=== PATIENT | female | born 1965 | race Caucasian/White ===

== ENCOUNTER 2017-12-20 15:44 | Emergency (ER) | payer MEDICAID, SELFPAY ==
[2017-12-20 15:46] VITALS: BP 159/85; PULSE 84; RESP 16; TEMP 36.9; O2SAT 99; BMI 30.9
--- NOTE | 2017-12-20 16:19 | CT_ITS ---
STUDY: CT ABDOMEN AND PELVIS WITH CONTRAST REASON FOR EXAM: Female, 52 years old. Left lower quadrant pain RADIATION DOSAGE (If Supplied By Facility): CTDIvol = ( 14.64 ) mGy, DLP = ( 957.57 ) mGycm TECHNIQUE: Transaxial images were obtained from the lower chest to the upper thighs with oral contrast. 100 ml of Isovue 370 contrast was administered. Sagittal and coronal images were reconstructed. Individualized dose optimization techniques were used for this CT. COMPARISON: None. FINDINGS: There is minimal dependent atelectasis in both lung bases. There are a few nodular opacities in the periphery of both lung bases measuring less than 5 mm in size. There is no pleural effusion. The heart is normal in size. The liver is unremarkable. The gallbladder and biliary system are unremarkable. The spleen is unremarkable. The pancreas is unremarkable. The adrenal glands are unremarkable. The right kidney is unremarkable. There is no dilatation of the collecting system in the right kidney. The left kidney is unremarkable. There is no dilatation of the collecting system in the left kidney. The stomach is unremarkable. The small bowel is unremarkable. There are diverticula in the distal colon without adjacent stranding. There is mild wall thickening in the ascending colon. There is non-visualization of the appendix. There are minimal vascular calcifications. The inferior vena cava is unremarkable. The retroperitoneum is unremarkable. There is no free fluid in the abdomen. The urinary bladder is decompressed. The uterus is normal in appearance. There are no abnormal masses in the adnexal regions. There are small phleboliths scattered in the lower pelvis. The soft tissues of the abdominal wall are unremarkable. There are mild degenerative changes in the visualized spine. There are marked degenerative disc changes at L5-S1. CT/Abdomen/Pelvis WITH Contrast IMPRESSION: There is diverticulosis of the distal colon. There is mild wall thickening in the proximal colon, and a focal colitis cannot be excluded. There is no bowel obstruction, ascites, or free air. There are a few nodular opacities in the lung bases which measure less than 5 mm in size and cannot be further characterized. A nonemergent CT of the chest can be considered to evaluate the remainder of the lungs. Electronically Signed: Frdea Luz MD at 18:49 EDT Tel Direct: [phone], Service support ,
--- NOTE | 2017-12-20 16:19 | EKG12_ITS ---
Test Reason : ABD PAIN Blood Pressure : / mmHG Vent. Rate : 059 BPM Atrial Rate : 059 BPM P-R Int : 192 ms QRS Dur : 078 ms QT Int : 410 ms P-R-T Axes : 046 033 042 degrees QTc Int : 405 ms Sinus bradycardia Otherwise normal ECG Confirmed by HARSHAD NGUYEN, DEANNA ([id number]), editor house organ JUANITA SADLER ([id number]) on 12/24/2017 1:45:41 PM Referred By: ROSANGELA Confirmed By:DEANNA PATRICIA MD
[2017-12-20 17:24] LABS: Absolute Lymphocyte Count 1.77 X10^3/ul (0.83-4.51); Absolute Neutrophil Count 2.7 X10^3/uL (2.0-7.7); Basophil# 0.02 X10^3/uL; Basophil% 0.4 % (0-1); Eosinophil# 0.26 X10^3/uL; Eosinophils% 5.1 % (0-5); Lymphocyte # 1.77 X10^3/ul (4.0); Lymphocyte % 34.8 % (19-41); Mean Corp Hgb Conc 35.9 g/gl (32-36); Mean Corpuscular Hgb 32.2 pg (27.0-32.0); Mean Corpuscular Volume 89.7 fL (81-99); Mean Platelet Vol. 9.2 fl (6.2-12.0); Monocyte# 0.32 X10^3/uL; Monocyte% 6.3 % (0-10); Neutrophil # 2.72 X10^3/uL (2.7-7.7); Neutrophil % 53.4 % (47-70); Platelet Count 205 K/mm3 (150-450); RBC Distribution Width CV 12.8 % (11.6-14.6); RBC Distribution Width SD 41.5 fl (35.1-43.9); Red Blood Count 4.35 M/mm3 (4.2-5.4); White Blood Count 5.1 K/mm3 (4.4-11.0)
[2017-12-20 17:27] LABS: POSITIVE COUNT NO; POSITIVE DIFFERENTIAL NO; POSITIVE MORPHOLOGY NO
[2017-12-20] MEDS: 0.9% Normal Saline 1,000 ML 1000 ML IV (17:37)
[2017-12-20] MEDS: Ondansetron 4 MG/2 ML Vial IV (17:37)
[2017-12-20] MEDS: Dicyclomine 10 MG Capsule 20 MG PO (17:37)
[2017-12-20 17:42] LABS: ALB/GLOB Ratio 1.2 RATIO (0.9-2.4); AST(SGOT) 18 U/L (15-37); Alanine Aminotransfer ALT/SGPT 26 U/L (13-56); Alkaline Phosphatase 50 U/L (45-117); Anion Gap 9 (5-15); BUN 6 mg/dL (7-18); BUN/Creat Ratio 7.2 RATIO (10-20); Calcium,Total 9.2 mg/dL (8.5-10.1); Chloride 97 mmol/L (98-107); Creatinine, Serum 0.84 mg/dL (0.55-1.02); EST Glomerular Filtration Rate 76 mL/min (>60); Est Glom Filt Rate - Afr Amer 92 mL/min (>60); Globulin 3.4 g/dL (2.2-4.2); Glucose 98 mg/dL (74-106); Lipase 106 U/L (73-393); Protein, Total 7.4 g/dL (6.4-8.2); Sodium Level 131 mmol/L (136-145)
[2017-12-20 17:50] VITALS: BP 152/87; PULSE 82; RESP 16; O2SAT 99
[2017-12-20 17:59] LABS: Bacteria 0 SEEN /hpf (None Seen); Mucous, Urine 0 SEEN /hpf (<or=2+); Red Blood Cells-Urine 0 SEEN /hpf (0-5); White Blood Cells 0 SEEN /hpf (0-5)
[2017-12-20 18:06] LABS: Color, Urine Yellow (Yellow); Glucose, Dipstick Normal (Normal); Ketone-Dipstick Negative (Negative); Leukocyte Esterase-Dipstick Negative /ul (Negative); Nitrite-Dipstick Negative (Negative); Occult Blood-Urine Negative /ul (Negative); Protein-Dipstick Negative (Negative); Specific Gravity, Urine 1.015 (1.002-1.030); Urine Bilirubin Dipstick Negative (Negative); Urine Clarity Sl. Cloudy (Clear); Urine Urobilinogen Normal (Normal)
[2017-12-20 18:33] LABS: Squamous Epithelial Cells - UA 0-5 SEEN /hpf (5-10)
--- NOTE | 2017-12-20 19:56 | ED.DEP ---
ED Disposition - Plan for ED Patient: Disposition: Home or Assisted Living Chief Complaint: Abd Pain Instructions: ED IBS Prescriptions: Ondansetron [Zofran Odt] 4 mg PO Q8H PRN PRN #20 tab PRN Reason: Nausea Dicyclomine HCl [Bentyl] 20 mg PO TIDAC #21 cap Referrals: Town Doctor,Out of [Primary Care Provider] - Doctor,Your [STAFF PHYSICIAN] - Keep Adriana appointment Additional Instructions: Please follow-up with your doctor as scheduled. You may continue the antibiotics they placed you on for concern for intra-abdominal infection. You may use the Zofran for nausea and the Bentyl for crampy abdominal pain. If you have any worsening of your condition or any new concerning symptoms, please return immediately to the emergency department for another evaluation.
[2017-12-20 20:00] VITALS: RESP 18
[2017-12-20 23:18] LABS: Internal QC Validated? YES +Cl - CLEAR BKGD; Pregnancy, Urine Negative Negative
--- NOTE | 2017-12-21 01:17 | ED.VISSUMM ---
- ER Visit Summary Date of Service: 12/21/17 Chief Complaint: Abdominal pain History of Present Illness: The patient is a 52 F with history of irritable bowel syndrome presents for 2 months of abdominal pain. It is continuous and cramping. She describes it asroiling in the stomach. And diarrhea. She denies fever, vomiting, constipation, urinary symptoms, or other complaints. She states she is missed the last 2 weeks of work because of her IBS. She was evaluated a week ago by her primary care doctor and started on Cipro. She had IBS in the past but is unable to follow-up with her GI doctor that she saw before because she is outside the window of not needing a new referral. Patient has tried Tylenol without relief of her pain. Physical Examination: Vital signs: afebrile, hemodynamically stable, no hypoxia on room air General: well nourished, well developed, in no distress Skin: warm, dry, no rash, no pallor HEENT: normocephalic and atraumatic; PERRL, EOMI, moist mucous membranes Cardiovascular: regular rate and rhythm without murmurs, no peripheral edema, 2+ pulses all distal extremities Respiratory: No increased work of breathing, lungs are clear to auscultation bilaterally, no rales, rhonchi or wheezing Abdominal: Abdomen is soft, diffusely tender with normoactive bowel sounds, no guarding or rebound, no masses; rectal exam shows nontender rectum with no gross blood on glove. Guaiac negative. MSK: Moves all extremities, no deformities, normal strength Neuro: Awake and alert, oriented ?4. No facial droop, sensation and motor function intact and symmetric Test Results: Abnormal Lab Results 12/20/17 12/20/17 12/20/17 17:15 17:15 17:52 WBC 5.1 RBC 4.35 Hgb 14.0 Hct 39.0 MCV 89.7 MCH 32.2 H MCHC 35.9 RDW 12.8 RDW Differential 41.5 Plt Count 205 MPV 9.2 Immature Gran % (Auto) 0.000 Neut % (Auto) 53.4 Lymph % (Auto) 34.8 [place] % (Auto) 6.3 Eos % (Auto) 5.1 H Baso % (Auto) 0.4 Absolute Neuts (auto) 2.7 Absolute Lymphs (auto) 1.77 Total Counted Not Reportable Sodium 131 L Potassium 4.0 Chloride 97 L Carbon Dioxide 25.0 Anion Gap 9 BUN 6 L Creatinine 0.84 Estim Creat Clear Calc 70.50 Est GFR (MDRD) Af Amer 92 Est GFR (MDRD) Non-Af 76 BUN/Creatinine Ratio 7.2 L Glucose 98 Calcium 9.2 Total Bilirubin 0.30 AST 18 ALT 26 Alkaline Phosphatase 50 Troponin I < 0.015 Total Protein 7.4 Albumin 4.0 Globulin 3.4 Albumin/Globulin Ratio 1.2 Lipase 106 Urine Color Yellow Urine Clarity Sl. Cloudy Urine pH 6.0 Ur Specific [place] 1.015 Urine Protein Negative Urine Glucose (UA) Normal Urine Ketones Negative Urine Occult Blood Negative Urine Nitrite Negative Urine Bilirubin Negative Urine Urobilinogen Normal Ur Leukocyte Esterase Negative Urine RBC 0 SEEN Urine WBC 0 SEEN Ur Squamous Epith Cells 0-5 SEEN Urine Bacteria 0 SEEN Urine Mucus 0 SEEN Urine Test Negative Clinical Impression(s) from Imaging Studies Abdomen/Pelvis CT 12/20/17 16:19 IMPRESSION: There is diverticulosis of the distal colon. There is mild wall thickening in the proximal colon, and a focal colitis cannot be excluded. There is no bowel obstruction, ascites, or free air. There are a few nodular opacities in the lung bases which measure less than 5 mm in size and cannot be further characterized. A nonemergent CT of the chest can be considered to evaluate the remainder of the lungs. Electronically Signed: Freda Luz MD at 18:49 EDT Tel Direct: [phone], Service support , Emergency Department Course and Treatment: Patient presents for worsening abdominal symptoms over the last 2 weeks. She was guaiac negative on her Hemoccult. CBC showed no leukocytosis or anemia. Chemistry panel showed very mild hyponatremia. No renal or hepatic derangements. Lipase normal. Urinalysis negative for infection. CT the abdomen and pelvis showed mild thickening of the proximal colon, questionable for focal colitis. Patient received Bentyl and Zofran for her symptoms. She was also given IV hydration. On reevaluation she stated she felt much better. Is given a prescription for Zofran and Bentyl. She will continue the ciprofloxacin as she was directed by her primary care doctor given that she did show some signs of inflammation on the CT scan. She is to follow-up with her primary care doctor and continue the referral process to go see her GI specialist again. She was amenable to this plan. She was discharged home in improved condition. Treatment Plan: [] Disposition: [] Impression: Irritable bowel syndrome, mild colitis This note was generated with [employer](TM) by [employer] dictation software. It may contain incorrect words, spelling, and punctuation that were not noted in review of the chart prior to signing ED Disposition - Plan for ED Patient: Disposition: Home or Assisted Living Chief Complaint: Abd Pain Instructions: ED IBS Prescriptions: Ondansetron [Zofran Odt] 4 mg PO Q8H PRN PRN #20 tab PRN Reason: Nausea Dicyclomine HCl [Bentyl] 20 mg PO TIDAC #21 cap Referrals: Town Doctor,Out of [Primary Care Provider] - Doctor,Your [STAFF PHYSICIAN] - Keep Adriana appointment Additional Instructions: Please follow-up with your doctor as scheduled. You may continue the antibiotics they placed you on for concern for intra-abdominal infection. You may use the Zofran for nausea and the Bentyl for crampy abdominal pain. If you have any worsening of your condition or any new concerning symptoms, please return immediately to the emergency department for another evaluation.
== END 2017-12-20 20:03 | disposition home or self-care (01) ==
PROVIDERS: Emergency Provider Emergency Medicine; Family Provider Physician Assistant Medical
DX: K58.0 Irritable bowel syndrome with diarrhea (principal); K52.9 Noninfective gastroenteritis and colitis, unspecified; Z72.0 Tobacco use; Z79.899 Other long term (current) drug therapy
CPT/HCPCS: 74177; 80053; 81001; 81025; 82274; 83690; 84484; 85025; 93005; 96361; 96374; 99283; J7030; Q9967; A4216; J2405